=== PATIENT | male | born 1965 ===

== ENCOUNTER 2017-06-18 10:57 | Emergency (ER) | payer OTHER ==
[2017-06-18] MEDS ORDERED: LASIX IVP ONE (11:06)
[2017-06-18 11:08] VITALS: BMI 39.9
[2017-06-18] MEDS ORDERED: LANOXIN INJ ONE (11:08)
[2017-06-18] MEDS ORDERED: LASIX ONE ×2 (11:08→12:46)
[2017-06-18 11:21] LABS: HEMATOCRIT 38.8 % (42.0-54.0)
[2017-06-18 11:23] LABS: BASOPHILS % (AUTO) 0 % (0.2-1.0); EOSINOPHILS # (AUTO) 0.7 x10^3/uL (0.0-0.2); EOSINOPHILS % (AUTO) 13.3 % (0.9-2.9); HEMOGLOBIN 13.2 g/dL (13.5-18.0); LYMPHOCYTES # (AUTO) 0.7 X10^3/uL (1.3-2.9); LYMPHOCYTES % (AUTO) 13.3 % (21.0-51.0); MEAN CORPUSCULAR HEMOGLOBIN 30.5 pg (27.0-34.0); MEAN CORPUSCULAR HGB CONC 33.9 g/dL (33.0-35.0); MEAN CORPUSCULAR VOLUME 89.9 fL (80.0-100.0); MEAN PLATELET VOLUME 9.5 fL (7.4-11.0); MONOCYTES # (AUTO) 0 x10^3/uL (0.3-0.8); MONOCYTES % (AUTO) 0 % (0.0-13.0); NEUTROPHILS # (AUTO) 3.7 x10^3/uL (2.2-4.8); NEUTROPHILS % (AUTO) 73.4 % (42.0-75.0); PLATELET COUNT 162 X10^3/uL (150.0-450.0); RED BLOOD COUNT 4.31 X10^6/uL (4.7-6.0); RED CELL DISTRIBUTION WIDTH 13.5 % (11.6-16.5)
--- NOTE | 2017-06-18 11:23 | RAD ---
Examination: AP chest History: Chest pain Comparison reference: None Findings: AP view of the chest is a lordotic projection, resulting in some distortion of cardiac and diaphragm contours. The heart is not grossly enlarged, the lungs are underinflated but clear. There i s no obvious consolidation, pneumothorax or large pleural effusion. Impression: No active chest disease demonstrated. Standard PA and lateral views suggested for more ac curate evaluation when condition permits. Reported By:
[2017-06-18 11:42] LABS: PLATELET MORPHOLOGY COMMENT NORMAL (NORMAL)
[2017-06-18 11:43] LABS: BLOOD UREA NITROGEN 15 mg/dL (7-18); CALCIUM 8.6 mg/dL (8.5-10.1); CARBON DIOXIDE 30.2 mmol/L (21-32); CHLORIDE 106 mmol/L (98-107); CREATININE 0.93 mg/dL (0.70-1.30); SODIUM 142 mmol/L (136-145); TROPONIN I < 0.02 ng/mL (0-1.5); eGFR BLACK RACES > 60 (>60); eGFR NON BLACK RACES > 60 (>60)
[2017-06-18 11:47] LABS: ALANINE AMINOTRANSFERASE 28 Units/L (12-78); ALBUMIN 3.5 g/dL (3.4-5.0); ALKALINE PHOSPHATASE 65 Units/L (46-116); ASPARTATE AMINO TRANSFERASE 32 Units/L (15-37); CKMB % 0.4 % (<4); CREATINE KINASE 272 Units/L (39-308); CREATINE KINASE MB < 1.0 ng/mL (0-4.0); MAGNESIUM 2.1 mg/dL (1.7-2.9); TOTAL PROTEIN 7.5 g/dL (6.4-8.2)
--- NOTE | 2017-06-18 12:03 | DR.CP ---
HPI - Time Seen Time seen: 11:05 - PCP Primary Care Physician: leslee - HPI Comment HPI Comment: Chest pain since yesterday. He can not characterise this chest discomfort though. It is not radiating. He denies palpitation, diaphoresis, nausea or vomitting. His respiratory status is no worse than usual. Of note he appears to be a poor historian regarding his PMHX. - Complaint Chief Complaint:: patient stated his chest has been hurting for a long time but yesterday was worse. pdc stated they just received him yesterday to there facility. - Reviewed Nurses Notes Review: Yes - Source History Provided: Patient - Mode of Arrival Mode of Arrival: Ambulatory - Timing Onset of Chief Complaint: 06/17/17 Came on: Gradually Pain: Present Now - Location Location of Chest Pain: Chest Chest Pain Radiation Location: None - Context Onset: At rest Cardiac Risk Factors: Smoker PE Risk Factors: None History of: Similar pain in the past Prehospital Care: None - Quality Quality: Other (unable to describe) - Modifying Factors Worsens: Nothing Impoves: Nothing PMH - PMH Past Medical History: No Past Surgical History: No - Family History History of Family Medical Conditions: No - Social History Does patient currently use any type of tobacco product: Yes Have you used tobacco products in the last 12 months: Yes Type of Tobacco Use: Cigarettes How many years tobacco product used: 25 Does any household member use tobacco: No Alcohol Use: None Do you use any recreational Drugs:: No Lives With: Other Lives Where: inmate at [facility] - infectious screening In the last 2 months have you had wt loss of >10#?: NO Have you had fever, night sweats or hemotysis?: No Have you traveled outside the country in the last 6 months?: No Isolation: Standard ROS - Review of Systems Constitutional: No Symptoms Reported Eyes: No Symptoms Reported ENTM: No Symptoms Reported Respiratoy: No Symptoms Reported Cardiovascular: Chest Pain, Edema (both legs ) Gastrointestinal/Abdominal: No Symptoms Reported Genitourinary: No Symptoms Reported Neurological: No Symptoms Reported Musculoskeletal: No Symptoms Reported Integumentary: No Symptoms Reported Hematologic/Lymphatic: No Symptoms Reported Endocrine: No Symptoms Reported Psychiatric: No Symptoms Reported All Other Systems: Reviewed and Negative PE - Vitals Vitals: Temperature 98.7 F Pulse Rate [Right Brachial] 125 Pulse Rate 122 Respiratory Rate 16 Blood Pressure [Right Arm] 107/72 Blood Pressure 107/65 O2 Sat by Pulse Oximetry 100 - General Limitations: No Limitations General Appearance: Alert, In No Apparent Distress - Head Head Exam: Normal Inspection - Eyes Eye exam: Normal Appearance - ENT ENT Exam: Normal Exam - Chest Chest Inspection: Normal Inspection - Respiratory Respiratory Exam: Normal Lung Sounds Bilat - Cardiovascular Cardiovascular Exam: Tachycardia, Irregular Rhythm Pulse: Irregular Edema: 2, Bilateral, Extremity - Abdominal Exam Abdominal Exam: Normal Inspection, Normal Bowel Sounds, Soft - Extremities Extremities Exam: Edema - Back Back Exam: Normal Inspection - Skin Skin Exam: Warm, Dry, Intact, Normal Color MDM - Differential Diagnosis Differential Diagnosis: Angina, Chest Wall Pain, CHF, Pneumonia, Pulmonary Embolus Course - Reevaluation 1st: Improved 2nd: Improved - Education/Counseling Educated On: Treatment, Diagnosis, Needs for Follow Up (he is diuresing well with administration of lasix.) ROR - Labs Reviewed Result Diagrams: 06/18/17 11:00 06/18/17 11:00 Laboratory: WBC 5.0 X10^3/uL (3.6-10.0) 06/18/17 11:00 RBC 4.31 X10^6/uL (4.7-6.0) L 06/18/17 11:00 Hgb 13.2 g/dL (13.5-18.0) L 06/18/17 11:00 Hct 38.8 % (42.0-54.0) L 06/18/17 11:00 MCV 89.9 fL (80.0-100.0) 06/18/17 11:00 MCH 30.5 pg (27.0-34.0) 06/18/17 11:00 MCHC 33.9 g/dL (33.0-35.0) 06/18/17 11:00 RDW 13.5 % (11.6-16.5) 06/18/17 11:00 Plt Count 162 X10^3/uL (150.0-450.0) 06/18/17 11:00 Plt Count Comment Adequate (ADEQUATE) 06/18/17 11:00 MPV 9.5 fL (7.4-11.0) 06/18/17 11:00 Neut % 73.4 % (42.0-75.0) 06/18/17 11:00 Lymph % 13.3 % (21.0-51.0) L 06/18/17 11:00 [place] % 0 % (0.0-13.0) 06/18/17 11:00 Eos % 13.3 % (0.9-2.9) H 06/18/17 11:00 Baso % 0 % (0.2-1.0) L 06/18/17 11:00 Neut # 3.7 x10^3/uL (2.2-4.8) 06/18/17 11:00 Lymph # 0.7 X10^3/uL (1.3-2.9) L 06/18/17 11:00 [place] # 0 x10^3/uL (0.3-0.8) L 06/18/17 11:00 Eos # 0.7 x10^3/uL (0.0-0.2) H 06/18/17 11:00 Baso # 0.0 X10^3/uL (0.0-0.1) 06/18/17 11:00 Absolute Nucleated RBC 0.1 /100WBC 06/18/17 11:00 Total Counted 100 06/18/17 11:00 Neutrophils % (Manual) 53 % (39-76) 06/18/17 11:00 Lymphocytes % (Manual) 44 % (13-43) H 06/18/17 11:00 Monocytes % (Manual) 2 % (4-9) L 06/18/17 11:00 Eosinophils % (Manual) 1 % (0-6) 06/18/17 11:00 Plt Morphology Comment Normal (NORMAL) 06/18/17 11:00 RBC Morphology Normal (NORMAL) 06/18/17 11:00 INR Target Range - 06/18/17 11:00 INR 0.95 (0.8-1.3) 06/18/17 11:00 PTT 26.4 SECONDS (22.9-36.5) 06/18/17 11:00 PTT Comment - 06/18/17 11:00 D-Dimer 1050 ng/mL (0-400) H* 06/18/17 11:00 Sodium 142 mmol/L (136-145) 06/18/17 11:00 Corrected Sodium TNP 06/18/17 11:00 Potassium 4.0 mmol/L (3.5-5.1) 06/18/17 11:00 Chloride 106 mmol/L (98-107) 06/18/17 11:00 Carbon Dioxide 30.2 mmol/L (21-32) 06/18/17 11:00 BUN 15 mg/dL (7-18) 06/18/17 11:00 Creatinine 0.93 mg/dL (0.70-1.30) 06/18/17 11:00 Est GFR (MDRD) Af Amer > 60 (>60) 06/18/17 11:00 Est GFR (MDRD) Non-Af > 60 (>60) 06/18/17 11:00 Glucose 95 mg/dL (65-99) 06/18/17 11:00 Calcium 8.6 mg/dL (8.5-10.1) 06/18/17 11:00 Corrected Calcium TNP 06/18/17 11:00 Magnesium 2.1 mg/dL (1.7-2.9) 06/18/17 11:00 Total Bilirubin 0.50 mg/dL (0.2-1.0) 06/18/17 11:00 AST 32 Units/L (15-37) 06/18/17 11:00 ALT 28 Units/L (12-78) 06/18/17 11:00 Alkaline Phosphatase 65 Units/L (46-116) 06/18/17 11:00 Creatine Kinase 272 Units/L (39-308) 06/18/17 11:00 CK-MB (CK-2) < 1.0 ng/mL (0-4.0) 06/18/17 11:00 CK/CKMB % Calc 0.4 % (<4) 06/18/17 11:00 Troponin I < 0.02 ng/mL (0-1.5) 06/18/17 11:00 Total Protein 7.5 g/dL (6.4-8.2) 06/18/17 11:00 Albumin 3.5 g/dL (3.4-5.0) 06/18/17 11:00 Globulin 4.0 g/dL (2.5-4.5) 06/18/17 11:00 Albumin/Globulin Ratio 0.9 Ratio (1.1-2.1) L 06/18/17 11:00 - XRAY XRAY Interpreted by: Radiologist (CXR: no active chest disease. Chest CTA: No acute emboli ) - EKG Rate: 109 [place]: Normal Rhythm: Aflutter Block: None Hypertrophy: None - Diagnosis Discharge Problem: Chest pain, D-dimer, elevated, Pedal edema - Discharge Plan Condition: Stable - Follow ups/Referrals Follow ups/Referrals: U [Other] - 3 days - Instructions
[2017-06-18] MEDS ORDERED: NS 100 ML IV 100 ML IV ONE (13:18)
[2017-06-18 13:20] VITALS: BP 107/72
--- NOTE | 2017-06-18 14:35 | CT ---
HISTORY: Chest pain, shortness of breath Study: CTA chest Comparison: None Technique: Multiple axial images of the chest were obtained after the administration of IV contrast. 3D reconstructions were performed utilizing radial maximum intensity projection imaging. Dose reduct ion techniques including Automated Exposure Control (AEC) and adjustment of mA and kV were utilized. Findings: Contrast opacification of the pulmonary arteries is adequate to the level of the segmental branches. No evidence of acute pulmonary emboli. Normal appearance of the heart and pericardium. The aorta appe ars normal in course and caliber. The lungs are clear without effusion, consolidation, or pneumothora x. Airways are patent. The soft tissues and osseous structures appear intact. The visualized portions of the upper abdomen a re grossly unremarkable. IMPRESSION: 1.No acute pulmonary emboli. Reported By:
[2017-06-19] MEDS ORDERED: LANOXIN INJ IVP ONE (11:07)
[2017-06-19] MEDS ORDERED: ASPIRIN 81 MG CHEWTAB PO ONE (12:39)
[2017-06-19] MEDS ORDERED: LASIX IVP ONE (12:40)
== END 2017-06-18 15:00 | disposition home or self-care (01) ==
LOC: ER 10:57
DX: R07.89 Other chest pain (principal); R79.1 Abnormal coagulation profile; R60.9 Edema, unspecified
CPT/HCPCS: 36415; 71010; 71275; 80053; 82550; 82553; 83735; 84484; 85025; 85378; 85610; 85730; 93005; 93010; 96365; 96374; 96375; 99283; A4222; J1160; J1940